=== PATIENT | male | born 1960 | race Two or more races ===

== ENCOUNTER 2017-04-19 19:06 | Emergency (ER) | payer OTHER ==
[2017-04-19] MEDS ORDERED: MORPHINE SULFATE 4 MG/ML, 1ML ONE (22:37)
== END 2017-04-19 19:18 | disposition left against medical advice (07) ==
LOC: ED 19:12
DX: Z53.21 Procedure and treatment not carried out due to patient leaving prior to being seen by health care provider (principal)